=== PATIENT | male | born 2000 | race Caucasian/White ===

== ENCOUNTER 2023-02-17 16:14 | Emergency (ER) | payer OTHER ==
[~2023-02-17] VITALS: Ht 180.3 cm; Wt 77.1 kg
--- NOTE | 2023-02-17 20:45 | NUR ---
Patient was just called to be placed in bed in the ER due to no beds available in the ER earlier, but patient was not present in the waiting room or outside of ER.
--- NOTE | 2023-02-17 21:15 | NUR ---
Patient was called to be placed in room but patient was not present in the waiting room or outside of ER.
--- NOTE | 2023-02-17 21:45 | NUR ---
Patient was called to be placed in room but patient was not present in the waiting room or outside of ER. PATIENT WAS TRIAGED BUT NO SEEN BY ERMD.
== END 2023-02-17 21:45 | disposition left against medical advice (07) ==
LOC: ER 16:18
DX: S81.852A Open bite, left lower leg, initial encounter (principal); Z53.21 Procedure and treatment not carried out due to patient leaving prior to being seen by health care provider; W54.0XXA Bitten by dog, initial encounter; Y93.89 Activity, other specified; Y92.89 Other specified places as the place of occurrence of the external cause; Y99.8 Other external cause status
CPT/HCPCS: A4663